=== PATIENT | female | born 1950 | race Caucasian/White ===

== ENCOUNTER 2024-08-16 09:36 | Outpatient (CLI) | payer OTHER | END 2024-08-16 09:38 | disposition home or self-care (01) | LOC: SONOGRAMA 09:36 | PROVIDERS: ATTEND Pathology Anatomic Pathology & Clinical Pathology | DX: D44.0 Neoplasm of uncertain behavior of thyroid gland (principal); E04.1 Nontoxic single thyroid nodule ==

== ENCOUNTER 2025-01-21 09:55 | Outpatient (CLI) | payer OTHER | END 2025-01-21 09:58 | disposition home or self-care (01) | LOC: SONOGRAMA 09:55 | PROVIDERS: ATTEND Pathology Anatomic Pathology & Clinical Pathology | DX: D44.0 Neoplasm of uncertain behavior of thyroid gland (principal); E04.1 Nontoxic single thyroid nodule ==